=== PATIENT | male | born 1995 | race Two or more races ===

== ENCOUNTER 2019-07-09 10:57 | Emergency (ER) | payer SELFPAY ==
[~2019-07-09] VITALS: Ht 182.9 cm; Wt 94.0 kg
[2019-07-09] MEDS ORDERED: ACETAMINOPHEN WITH CODEINE 300/30MG TABLET PO ONE (11:30)
[2019-07-09] MEDS ORDERED: IBUPROFEN 800MG TABLET PO ONE (11:30)
[2019-07-09 12:40] VITALS: BP 118/76
== END 2019-07-09 12:35 | disposition home or self-care (01) ==
LOC: ER 11:13
DX: S83.015A Lateral dislocation of left patella, initial encounter (principal); X58.XXXA Exposure to other specified factors, initial encounter; Y93.89 Activity, other specified; Y92.018 Other place in single-family (private) house as the place of occurrence of the external cause
CPT/HCPCS: 99283; Z7610